=== PATIENT | female | born 1965 | race Two or more races ===

== ENCOUNTER 2019-06-21 00:40 | Emergency (ER) | payer BC, MEDICAID ==
[~2019-06-21] VITALS: Ht 165.1 cm; Wt 81.6 kg
--- NOTE | 2019-06-21 01:09 | NUR ---
Patient presents to ER with epigastric pain. She states she took her usual medication prior to going to bed and soon after experienced the pain. Patient states she was burping a lot with it and thought it might be from the medication, however the pain did not go away. She has discomfort in the LUQ on palpation. Patient is nauseous but denies vomiting. Denies diarrhea. Patient is in NAD. Respirations even and unlabored.
[2019-06-21] MEDS ORDERED: ONDANSETRON 2MG/ML, 2ML ONE (01:12)
[2019-06-21] MEDS ORDERED: MORPHINE SULFATE 4 MG/ML, 1ML ONE (01:12)
[2019-06-21] MEDS ORDERED: ONDANSETRON 2MG/ML, 2ML IVPush ONE (01:30)
[2019-06-21] MEDS ORDERED: MORPHINE SULFATE 4 MG/ML, 1ML IVPush PRN (01:30)
[2019-06-21 01:33] LABS: BASOPHILS # (AUTO) 0.03 x10^3/uL (0-0.1); BASOPHILS % (AUTO) 1 % (0-1); EOSINOPHILS % (AUTO) 2 % (1-7); LYMPHOCYTES # (AUTO) 2.48 x10^3/uL (1-3.4); LYMPHOCYTES % (AUTO) 41 % (22-44); MD NO; MEAN CORPUSCULAR HEMOGLOBIN 28.1 pg (27.0-34.8); MEAN CORPUSCULAR HGB CONC 33.4 g/dL (32.4-35.8); MEAN PLATELET VOLUME 7.6 fL (7.4-10.4); MONOCYTES # (AUTO) 0.44 x10^3/uL (0.2-0.8); MONOCYTES % (AUTO) 7 % (2-9); NEUTROPHILS # (AUTO) 2.98 x10^3/uL (1.8-6.8); NEUTROPHILS % (AUTO) 50 % (42-75); PLATELET COUNT 299 x10^3/uL (130-400); RED BLOOD COUNT 5.14 x10^6/uL (3.82-5.3); RED CELL DISTRIBUTION WIDTH 14.1 % (9.6-15.2)
[2019-06-21 01:42] LABS: ALANINE AMINOTRANSFERASE 22 U/L (12-78); ALBUMIN 3.4 g/dL (3.4-5.0); ANION GAP 9 mmol/L (5-15); CALCIUM 8.3 mg/dL (8.5-10.1); CHLORIDE 112 mmol/L (98-107); CREATININE 0.78 mg/dL (0.55-1.02)
[2019-06-21 01:47] LABS: ALKALINE PHOSPHATASE 95 U/L (45-117); BILIRUBIN,TOTAL 0.2 mg/dL (0.2-1.0); TROPONIN I < 0.015 ng/mL (0.000-0.045)
[2019-06-21 02:31] VITALS: BP 110/81
--- NOTE | 2019-06-21 02:34 | NUR ---
Discharge instructions given. All questions and concerns addressed. Patient ambulatory with a steady gait. Belongings with patient.
== END 2019-06-21 02:36 | disposition home or self-care (01) ==
LOC: ED 01:37
DX: R07.89 Other chest pain (principal)
CPT/HCPCS: 36415; 71045; 80053; 80307; 83605; 83690; 83880; 84484; 85025; 93005; 99284